=== PATIENT | female | born 1990 | race Caucasian/White ===

== ENCOUNTER 2016-06-06 10:32 | Emergency (ER) | payer BC, MEDICAID ==
[2016-06-06 10:53] VITALS: BP 111/64
--- NOTE | 2016-06-06 11:35 | UC ---
Knee Pain HPI - HPI Summary HPI Summary: 26 yo female fell on right knee approximately a month aog initially had significant swelling and ecchymosis now has some persistent pain and swelling hurts to go up stairs and walk in snow no erythema knee pops alot - History of Current Complaint Chief Complaint: UCLowerExtremity Stated Complaint: KNEE INJURY Time Seen by Provider: 06/06/16 11:28 Hx Last Menstrual Period: 05/29/16 Onset/Duration: Gradual Onset, Lasting Weeks Severity Initially: Severe Severity Currently: Mild Pain Intensity: 3 Pain Scale Used: 0-10 Numeric Character: Dull, Aching Aggravating Factor(s): Movement, Weight Bearing Alleviating Factor(s): Rest Associated Signs And Symptoms: Positive: Swelling, Bruising Able to Bear Weight: Yes - Allergies/Home Medications Allergies/Adverse Reactions: Allergies Allergy/AdvReac Type Severity Reaction Status Date / Time Amoxicillin Allergy Rash Verified 11/10/14 07:41 Bee Venom Allergy Anaphylatic Verified 06/06/16 10:53 Shock Home Medications: Home Medications NK [No Home Medications Reported] 06/06/16 [History Confirmed 06/06/16] PMH/Surg Hx/FS Hx/Imm Hx Previously Healthy: Yes Endocrine History Of: Denies: Diabetes, Thyroid Disease Cardiovascular History Of: Denies: Cardiac Disorders, Hypertension Respiratory History Of: Denies: COPD, Asthma GI/ History Of: Denies: Ulcer - Surgical History Surgical History: Yes Surgery Procedure, Year, and Place: lumpectomy lt breast 2015 - Family History Known Family History: Positive: Hypertension - Social History Alcohol Use: Occasionally Alcohol Amount: 1 DRINK/WEEK Substance Use Type: Marijuana Substance Use Comment - Amount & Last Used: occasionally Smoking Status (MU): Never Smoked Tobacco Have You Smoked in the Last Year: No Review of Systems Constitutional: Negative Skin: Negative Eyes: Negative ENT: Negative Respiratory: Negative Cardiovascular: Negative Gastrointestinal: Negative Genitourinary: Negative Motor: Negative Neurovascular: Negative Musculoskeletal: Arthralgia Neurological: Negative Psychological: Negative All Other Systems Reviewed And Are Negative: Yes Physical Exam Triage Information Reviewed: Yes Appearance: Well-Appearing, No Pain Distress, Well-Nourished Vital Signs: Initial Vital Signs Temp 99.1 F 06/06/16 10:47 Pulse 66 06/06/16 10:47 Resp 18 06/06/16 10:47 BP 111/64 06/06/16 10:47 Pulse Ox 100 06/06/16 10:47 Eye Exam: Normal Eyes: Positive: Conjunctiva Clear ENT: Positive: Hearing grossly normal. Negative: Nasal congestion, Nasal drainage, Trismus, Muffled/hoarse voice Neck: Positive: Supple, Nontender Respiratory: Positive: Lungs clear, Normal breath sounds, No respiratory distress Cardiovascular: Positive: RRR, No Murmur Musculoskeletal: Positive: ROM Intact, Other: - see image Knee Pain Course/Dx - Differential Dx/Diagnosis Provider Diagnoses: left suprapatellar bursitis. nodule from hematoma Discharge - Discharge Plan Condition: Stable Disposition: HOME Patient Education Materials: Knee Pain (ED) Referrals: Adam Rodriguez [Medical Doctor] - As Soon As Possible Additional Instructions: heat 2-4 x day advil 2-3 4x day Images Front/Back of Body, Lg ([place]): 1 - subcutaneous nodule/skin intact/no erythema or warmth, stable joint/no joint effusion
--- NOTE | 2016-06-06 12:10 | RAD ---
Indication: Patellar pain. 4 views of the right patella demonstrates no fracture. No other bone or joint abnormality is noted. IMPRESSION: No fracture of the right knee is noted.
== END 2016-06-06 12:35 | disposition home or self-care (01) ==
LOC: UCEAST 10:32
DX: M70.42 Prepatellar bursitis, left knee (principal); Y93.9 Activity, unspecified; R22.42 Localized swelling, mass and lump, left lower limb; Z88.1 Allergy status to other antibiotic agents
CPT/HCPCS: 99211; G0463